=== PATIENT | female | born 1940 | race Caucasian/White ===

== ENCOUNTER 2017-05-13 14:15 | Inpatient (IN) | payer MEDICARE, OTHER ==
[2017-05-13] MEDS ORDERED: Sodium Chloride 0.9% 20 ML SDV FLUSH SCH (14:30)
--- NOTE | 2017-05-13 15:13 | EDM.PDOC ---
Addendum entered and electronically signed by Kyrie Matthew PA-C 05/14/17 15 :38: Plan: Admit for treatment of pneumonia in a chemotherapy patient. Original Note: ED HPI GENERAL MEDICAL PROBLEM - General Chief Complaint: Respiratory Problem Stated Complaint: FEVERS, COUGH SYMPTOMS Time Seen by Provider: 05/13/17 15:01 Source of Information: Reports: Patient History Limitations: Reports: No Limitations - History of Present Illness INITIAL COMMENTS - FREE TEXT/NARRATIVE: Patient presents with cough for 3 days, sore throat for 2 days and mild fever since yesterday. She is getting chemotherapy to treat cervical cancer. Last WBC was 1.4 so she is concerned about her ability to fight off an infection. So far she hasn't had any infections since she started chemo 2.5 months ago. 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 Denies: Malaise, Weakness, Diaphoresis HEENT: Reports: Throat Pain. Denies: Vision Change Respiratory: Reports: Cough, Sputum (clear). Denies: Shortness of Breath Cardiovascular: Denies: Chest Pain, Syncope GI/Abdominal: Denies: Abdominal Pain, Vomiting : Denies: Dysuria, Flank Pain, Frequency, Hematuria, Urgency Musculoskeletal: Reports: No Symptoms Skin: Denies: Cyanosis, Jaundice, Mottled, Pallor, Diaphoresis Neurological: Denies: Confusion, Dizziness, Headache Psychiatric: Denies: Agitation, Anxiety, Confusion ED EXAM, GENERAL - Physical Exam Exam: See Below Exam Limited By: No Limitations General Appearance: Alert, WD/WN, No Apparent Distress Eye Exam: Bilateral Eye: EOMI, Normal Inspection, PERRL Ears: Normal External Exam, Hearing Grossly Normal Nose: Normal Inspection, No Blood Throat/Mouth: Normal Inspection, Normal Lips, Normal Oropharynx, Normal Voice, No Airway Compromise Head: Atraumatic, Normocephalic Neck: Normal Inspection, Supple, Non-Tender, Full Range of Motion Respiratory/Chest: No Respiratory Distress, Other (Auscultating during the first two deep breaths, I heard wheezing and crackles in right lung base. The deep breaths triggered some coughing, after which all the lung driscoll were clear with good air movement.) Cardiovascular: Regular Rate, Rhythm, No Murmur GI/Abdominal: Soft, Non-Tender, No Organomegaly, No Distention Back Exam: Normal Inspection. No: CVA Tenderness (L), CVA Tenderness (R) Extremities: Normal Inspection, No Pedal Edema Neurological: Alert, Oriented, Normal Cognition, No Motor/Sensory Deficits Psychiatric: Normal Affect, Normal Mood Skin Exam: Warm, Dry, Intact, Normal Color, No Rash Course - Vital Signs Last Recorded V/S: Last Vital Signs Temp 99.4 F 05/13/17 14:37 Pulse 87 05/13/17 14:37 Resp 18 05/13/17 14:37 BP 184/105 H 05/13/17 14:37 Pulse Ox 97 05/13/17 14:37 - Orders/Labs/Meds Orders: Active Orders 24 hr Category Date Time Status Chest 2V [CR] Stat Exams 05/13/17 14:50 Ordered CULTURE BLOOD [BC] Stat Lab 05/13/17 14:30 Received CULTURE BLOOD [BC] Stat Lab 05/13/17 15:00 Received Heparin Sodium [Heparin Lock Flush 100 Units/ML] Med 05/13/17 15:15 Active 500 unit FLUSH ASDIRECTED Sodium Chloride 0.9% [Normal Saline] Med 05/13/17 14:30 Active 20 ml FLUSH ASDIRECTED Medication Orders Heparin Sodium (Porcine) (Heparin Lock Flush 100 Units/Ml) 500 unit FLUSH ASDIRECTED [facility] Sodium Chloride (Normal Saline) 20 ml FLUSH ASDIRECTED [facility] Labs: Laboratory Tests 05/13/17 05/13/17 Range/Units 14:30 14:30 WBC 4.6 L (5.0-10.0) 10^3/uL RBC 3.76 L (3.80-5.50) 10^6/uL Hgb 10.7 L (12.0-16.0) g/dL Hct 32.6 L (37.0-47.0) % MCV 86.7 (82.0-92.0) fL MCH 28.5 (27.0-31.0) pg MCHC 32.9 (32.0-36.0) g/dL RDW 16.5 H (11.5-14.5) % Plt Count 300 (150-300) 10^3/uL MPV 6.5 L (7.4-10.4) fL Neut % (Auto) 58.2 (50.0-70.0) % Lymph % (Auto) 23.7 (20.0-40.0) % [place] % (Auto) 16.1 H (2.0-8.0) % Eos % (Auto) 0.4 L (1.0-3.0) % Baso % (Auto) 1.6 H (0.0-1.0) % Neut # (Auto) 2.7 (2.5-7.0) 10^3/uL Lymph # (Auto) 1.1 (1.0-4.0) 10^3/uL [place] # (Auto) 0.7 (0.1-0.8) 10^3/uL Eos # (Auto) 0.0 L (0.1-0.3) 10^3/uL Baso # (Auto) 0.1 (0.0-0.1) 10^3/uL Sodium 135 L (136-145) mmol/L Potassium 4.1 (3.3-5.3) mmol/L Chloride 100 (98-115) mmol/L Carbon Dioxide 27.0 (21.0-32.0) mmol/L BUN 19 (6-25) mg/dL Creatinine 0.97 (0.51-1.17) mg/dL Est Cr Clr Drug Dosing 39.02 mL/min Estimated GFR (MDRD) 56 mL/min Glucose 95 (70-110) mg/dL Calcium 9.1 (8.7-10.3) mg/dL Meds: Medications Generic Name Dose Route Start Last Admin Trade Name Freq PRN Reason Stop Dose Admin Heparin Sodium (Porcine) 500 unit 05/13/17 15:15 Heparin Lock Flush 100 Units/Ml FLUSH ASDIRECTED [facility] Sodium Chloride 20 ml 05/13/17 14:30 Normal Saline FLUSH ASDIRECTED [facility] - Re-Assessments/Exams Free Text/Narrative Re-Assessment/Exam: 05/13/17 15:34 WBC is okay at 4.6 with adequate neutrophils at 2.7. To be safe, will give Rocephin IM. BP is high and will treat with Metoprolol for that. CXR doesn't show any definite infiltrates but bilat lower lung driscoll look a bit "hazy" to me. Will look at report when it comes. Discussed these findings and recommend early followup with Dr. Mcpherson in the next day or two. 05/13/17 16:03 I reviewed UpToDate on neutropenic fever, although this patient doesn't currently meet that criteria of 100.4 temp or absolute neutropenia, to optimize treatment as much as possible. Low-risk patients can be safely discharged on Cipro/Levaquin and Augmentin; high-risk patients need to be hospitalized for IV treatment. This patient does not meet criteria for neutropenic fever technically but I feel she is at risk for it so will proceed with the recommended treatment for low-risk neutropenic fever patients as follows: Cipro 750 mg bid and Augmentin 500 tid. I urged her to follow up with her PCP tomorrow for recheck. 05/13/17 16:22 Patient is feeling a little anxious which is likely affecting her BP also; she is okay with Ativan. 05/13/17 17:09 Xray report showed a "minimal new interstitial infiltrate in right upper lung". With that information I called her oncologist and Tomas Ahuja to discuss the details. We decided that she will have to postpone her chemo for tomorrow and keep her in the hospital here. Dr. Hernandez (oncologist) wants her to have Levaquin 750 mg q48 based on her CrCl; she doesn't want any other antibiotic coverage such as Cefipime since ANC is normal. Since we have already given Cipro and Rocephin, Tomas will determine when the Levaquin can be safely given as inpatient. Discussed findings and treatment plan with patient and her daughter. Departure - Departure Time of Disposition: 17:30 Disposition: Admitted As Inpatient 67 Condition: Good Clinical Impression: Cough productive of clear sputum, Patient on antineoplastic chemotherapy regimen Fever Qualifiers: Encounter type: initial encounter Pneumonia Qualifiers: Pneumonia type: due to unspecified organism Laterality: right Lung location: upper lobe of lung Qualified Code(s): J18.1 - Lobar pneumonia, unspecified organism - Discharge Information Forms: ED Department Discharge, ED Department Discharge - My Orders Last 24 Hours: My Active Orders 05/13/17 14:30 CULTURE BLOOD [BC] Stat Sodium Chloride 0.9% [Normal Saline] 20 ml FLUSH ASDIRECTED 05/13/17 14:50 Chest 2V [CR] Stat 05/13/17 15:00 CULTURE BLOOD [BC] Stat 05/13/17 15:15 Heparin Sodium [Heparin Lock Flush 100 Units/ML] 500 unit FLUSH ASDIRECTED - Assessment/Plan Last 24 Hours: My Active Orders 05/13/17 14:30 CULTURE BLOOD [BC] Stat Sodium Chloride 0.9% [Normal Saline] 20 ml FLUSH ASDIRECTED 05/13/17 14:50 Chest 2V [CR] Stat 05/13/17 15:00 CULTURE BLOOD [BC] Stat 05/13/17 15:15 Heparin Sodium [Heparin Lock Flush 100 Units/ML] 500 unit FLUSH ASDIRECTED
[2017-05-13] MEDS ORDERED: Heparin Sodium 100 Units/ML 5 ML MDV FLUSH SCH (15:15)
[2017-05-13] MEDS ORDERED: Metoprolol Tartrate 50 MG Tab PO SCH (15:30)
[2017-05-13] MEDS ORDERED: cefTRIAXone 1 GM Vial IM ONE (15:32)
[2017-05-13] MEDS ORDERED: Lidocaine 1% 20 ML MDV ONE (15:39)
[2017-05-13] MEDS ORDERED: cefTRIAXone 1 GM Vial ONE (15:45)
[2017-05-13] MEDS ORDERED: Ciprofloxacin 500 MG Tab PO ONE (15:54)
[2017-05-13] MEDS ORDERED: LORazepam 0.5 MG Tab PO ONE (16:21)
[2017-05-13] MEDS ORDERED: Ciprofloxacin 250 MG Tab ONE (16:28)
[2017-05-13] MEDS ORDERED: Acetaminophen 500 MG Tab PO PRN (18:27)
[2017-05-13] MEDS ORDERED: Dexamethasone 4 MG Tab PO SCH (18:27)
--- NOTE | 2017-05-13 20:25 | PCM.HP ---
H&P History of Present Illness - General Date of Service: 05/13/17 Admit Problem/Dx: Admission Diagnosis/Problem Admission Diagnosis/Problem Pneumonia Source of Information: Family, Old Records, Provider, RN History Limitations: Reports: No Limitations - History of Present Illness Initial Comments - Free Text/Narative: This 77-year-old female who suffers from metastatic cervical cancer currently on chemotherapy in due for chemotherapy on May 14 was admitted to the emergency department after developing a fever of 100.7 at home with a worsening cough, scratchy with mild mucous production. He took Tylenol at home however fever returned. Denies any nausea or vomiting however is quite weak. On May 11 her ANC was 1300 and has increased to 2700 today. Chest x-ray shows infiltrate right upper lobe. Renetta has metastatic cervical cancer with METS in the supraclavicular area, bilateral axillary area, lung nodules, mediastinal, subcarinal lymph nodes, retroperitoneal, retrocrural lymph nodes as noted on recent CT. Current chemotherapy with cisplatin, 5FU and bevacizumab. - Related Data Allergies/Adverse Reactions: Allergies Allergy/AdvReac Type Severity Reaction Status Date / Time No Known Allergies Allergy Verified 05/13/17 14:41 Home Medications: Home Meds Acetaminophen 500 mg PO Q4H PRN 03/17/17 [History] Dexamethasone 8 mg PO ASDIRECTED 03/17/17 [History] Ondansetron HCl [Zofran] 8 mg PO TID PRN 03/17/17 [History] Prochlorperazine Maleate [Compazine] 10 mg PO QID PRN 03/17/17 [History] guaiFENesin/Codeine Phosphate [Codeine-Guaifen 10-100 mg/5 ml] 10 ml PO Q6H PRN 03/17/17 [History] Past Medical History HEENT History: Reports: Cataract Cardiovascular History: Reports: Hypertension Gastrointestinal History: Reports: Hiatal Hernia 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: Musculoskeletal History: Reports: Osteoarthritis Neurological History: Reports: Other (See Below) Other Neuro History: beginning dementia Psychiatric History: Reports: Anxiety, Dementia, Panic Attack Immunologic History: Reports: Immunosuppression Oncologic (Cancer) History: Reports: Bone, Breast, Cervix - Infectious Disease History Infectious Disease History: Reports: Chicken Pox, Human Papilloma Virus (HPV), Influenza, Measles, Mumps, Shingles - Past Surgical History HEENT Surgical History: Reports: Cataract Surgery Cardiovascular Surgical History: Reports: None Oncologic Surgical History: Reports: None Social & Family History - Family History Cardiac: Reports: GA Respiratory: Reports: None GI: Reports: Hiatal Hernia : Reports: None OBGYN: Reports: Musculoskeletal: Reports: None Neurological: Reports: Alzheimers Disease Psychiatric: Reports: None Endocrine/Metabolic: Reports: None Hematologic: Reports: None Oncologic: Reports: Lung, Other (See Below) Other Oncologic Family History: mouth - Tobacco Use Smoking Status *Q: Never Smoker Second Hand Smoke Exposure: Yes - Caffeine Use Caffeine Use: Reports: Coffee - Alcohol Use Date of Last Drink: 05/08/17 - Recreational Drug Use Recreational Drug Use: No H&P Review of Systems - Review of Systems: Review Of Systems: See Below General: Reports: Fever, Chills, Malaise, Weakness, Fatigue, Diaphoresis. Denies: Night Sweats, Decreased Appetite, Weight Loss HEENT: Reports: Sore Throat Pulmonary: Reports: Cough, Sputum. Denies: Shortness of Breath, Wheezing, Pleuritic Chest Pain, Hemoptysis Cardiovascular: Reports: No Symptoms Gastrointestinal: Reports: No Symptoms Genitourinary: Reports: Other (History vaginal discharge however resolved--due to gynecological examination friability) Musculoskeletal: Reports: No Symptoms Skin: Reports: No Symptoms Psychiatric: Reports: No Symptoms Neurological: Reports: No Symptoms Hematologic/Lymphatic: Denies: Swollen Glands Immunologic: Reports: Other (Oncology patient) Exam - Exam Exam: See Below - Vital Signs Vital Signs: Last Vital Signs Temp 98.6 F 05/13/17 17:44 Pulse 70 05/13/17 17:44 Resp 20 05/13/17 17:44 BP 183/117 H 05/13/17 17:44 Pulse Ox 97 05/13/17 17:44 Weight: 118 lb 6.4 oz - Exam Quality Assessment: No: Supplemental Oxygen General: Alert, Oriented, 4 HEENT: Hearing Intact, Rhinitis. No: Mucosa Moist & [place] Neck: Supple, Trachea Midline. No: Lymphadenopathy Lungs: Wheezing (Right upper base). No: Crackles Cardiovascular: Regular Rate, Regular Rhythm, Normal S1, Normal S2 Abdomen: Normal Bowel Sounds, Soft. No: Organomegaly, Peritoneal Signs, Distention, Tenderness (Female) Exam: Deferred Back Exam: No: CVA Tenderness (L), CVA Tenderness (R) Peripheral Pulses: 2+: Radial (R), Femoral (L) Skin: Warm, Dry, Intact Neurological: Normal Gait Neuro Extensive - Mental Status: Alert, Oriented x3, Normal Mood/Affect, Memory Intact Neuro Extensive - Motor, Sensory, Reflexes: CN II-XII Intact, Normal Gait, Normal Reflexes Psychiatric: Alert, Labile Mood. No: Agitated - Patient Data Result Diagrams: 05/14/17 07:10 05/14/17 07:10 *Q Meaningful Use (ADM) - VTE *Q VTE Criteria *Q: - Stroke *Q Stroke Criteria *Q: - AMI *Q AMI Criteria *Q: Problem List Initiated/Reviewed/Updated: Yes Orders Last 24hrs: Active Orders 24 hr Category Date Time Status Patient Status [ADT] Routine ADT 05/13/17 17:53 Ordered Central Line Assessment [RC] [id number] Care 05/13/17 18:35 Active Up With Assistance [RC] .PRN Care 05/13/17 18:20 Active Regular Diet [DIET] Diet 05/13/17 Dinner Active Acetaminophen [Tylenol Extra Strength] Med 05/13/17 18:27 Active 500 mg PO Q4H PRN Codeine/guaiFENesin [Robitussin AC] Med 05/13/17 18:36 Active 10 ml PO Q6H PRN Code Status [Resuscitation Status] Routine Resus Stat 05/13/17 18:19 Ordered Medication Orders Acetaminophen (Tylenol Extra Strength) 500 mg PO Q4H PRN PRN Reason: Pain Guaifenesin/Codeine Phosphate (Robitussin Ac) 10 ml PO Q6H PRN PRN Reason: Cough Assessment/Plan Comment:: HISTORY OF PRESENT ILLNESS This 77-year-old female who suffers from metastatic cervical cancer currently on chemotherapy is due for chemotherapy on May 14 was admitted to the emergency department after developing a fever of 100.7 at [place] with a worsening cough, scratchy with mild mucous production. She took Tylenol however fever returned. Denies any nausea or vomiting however is quite weak. On May 11 her ANC was 1300 and has increased to 2700 today. Chest x-ray shows infiltrate right upper lobe. Renetta has metastatic cervical cancer with METS in the supraclavicular area, bilateral axillary area, lung nodules, mediastinal, subcarinal lymph nodes, retroperitoneal, retrocrural lymph nodes as noted on recent CT. Current chemotherapy with cisplatin, 5FU and bevacizumab. Oncology history, patient was seen at [facility] for second opinion by gynecology in January 2017, and was informed that it appeared that she has extensive cancer in the cervix extending into the paracervical regions. As per gynecology, this is cervical cancer causing metastasis to other sites. As per 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 SOCIAL HISTORY She used to live alone in [place]. Now, in long-term care center in [place] since March 2017. CODE STATUS full code IMPRESSION/PLAN Pneumonia, community-acquired, minimal new interstitial infiltrate in right upper lung, patient was given Rocephin along with ciprofloxacin in ED however will change to Levaquin at next interval dosing q 48 hours due to decreased creatinine clearance. Incentive spirometer, monitor for need for oxygenation. Blood cultures, sputum culture, urine culture, lactic acid level, qSOFA 0/3. Start normal saline at 62 mL per hour Hypertension, metoprolol given the ED, this has improved, will place on Norvasc 5 mg by mouth daily Metastatic cervical cancer with METS in the supraclavicular area, bilateral axillary area, lung nodules, mediastinal and subcarinal lymph nodes, retroperitoneal, retrocrural lymph nodes. Was to start chemotherapy tomorrow. This will be rescheduled. Chemotherapy-induced alopecia Immunocompromised host, precautions Overall plan, IV antibiotics--changed to Levaquin, respiratory precautions, monitor her ANC carefully, monitor for signs of sepsis, Reschedule chemotherapy. Dr. Dimple Hernandez hematology/oncology as been consulted and agrees with treatment plan. She does agree to chemotherapy being rescheduled. She will need 3 days minimal IV antibiotics for blood culture surveillance.
[2017-05-13] MEDS ORDERED: Ondansetron 4 MG/2 ML SDV IVPUSH PRN (20:52)
[2017-05-13] MEDS: amLODIPine 5 MG Tab PO SCH (21:18)
[2017-05-13] MEDS: Sodium Chloride 0.9% 1,000 ML IV SCH (21:22)
[2017-05-14] MEDS: Codeine/guaiFENesin 100mg-10 MG/5 ML Syrup 10 ML Cup PO PRN ×2 (01:37→22:03)
[2017-05-14] MEDS: amLODIPine 5 MG Tab PO SCH (09:10)
--- NOTE | 2017-05-14 09:16 | PCM.PN ---
- General Info Date of Service: 05/14/17 Functional Status: Reports: pain controlled - Review of Systems General: Reports: Other (She states she feels better, no sore throat, more energy today). Denies: Fever, Weakness, Fatigue, Chills, Night Sweats HEENT: Reports: no symptoms. Denies: sore throat (No longer has sore throat) Pulmonary: Reports: cough, sputum. Denies: shortness of breath, hemoptysis, wheezing Cardiovascular: Reports: Edema (Edema left lower extremity, chronic) Gastrointestinal: Reports: No symptoms Genitourinary: Reports: no symptoms Musculoskeletal: Reports: no symptoms Skin: Reports: no symptoms Neurological: Reports: No Symptoms Psychiatric: Reports: no symptoms, other (Very good affect) - Patient Data Vitals - most recent: Last Vital Signs Temp 98.9 F 05/14/17 05:46 Pulse 87 05/14/17 05:46 Resp 24 H 05/14/17 05:46 BP 161/80 H 05/14/17 09:10 Pulse Ox 94 L 05/14/17 05:46 Weight - most recent: 118 lb 6.4 oz I&O - last 24 hours: Intake & Output 05/13/17 05/14/17 05/14/17 22:59 06:59 14:59 Intake Total 440 496 Output Total 500 700 Balance -60 -204 Lab Results last 24 hrs: Laboratory Results - last 24 hr 05/14/17 05/14/17 Range/Units 07:10 07:10 WBC 4.5 L (5.0-10.0) 10^3/uL RBC 3.53 L (3.80-5.50) 10^6/uL Hgb 10.2 L (12.0-16.0) g/dL Hct 30.7 L (37.0-47.0) % MCV 87.0 (82.0-92.0) fL MCH 28.7 (27.0-31.0) pg MCHC 33.0 (32.0-36.0) g/dL RDW 16.4 H (11.5-14.5) % Plt Count 235 (150-300) 10^3/uL MPV 7.4 (7.4-10.4) fL Neut % (Auto) 56.0 (50.0-70.0) % Lymph % (Auto) 23.8 (20.0-40.0) % [place] % (Auto) 17.6 H (2.0-8.0) % Eos % (Auto) 1.2 (1.0-3.0) % Baso % (Auto) 1.4 H (0.0-1.0) % Neut # (Auto) 2.4 L (2.5-7.0) 10^3/uL Lymph # (Auto) 1.1 (1.0-4.0) 10^3/uL [place] # (Auto) 0.8 (0.1-0.8) 10^3/uL Eos # (Auto) 0.1 (0.1-0.3) 10^3/uL Baso # (Auto) 0.1 (0.0-0.1) 10^3/uL Sodium 138 (136-145) mmol/L Potassium 4.4 (3.3-5.3) mmol/L Chloride 104 (98-115) mmol/L Carbon Dioxide 27.7 (21.0-32.0) mmol/L BUN 16 (6-25) mg/dL Creatinine 0.95 (0.51-1.17) mg/dL Est Cr Clr Drug Dosing 39.85 mL/min Estimated GFR (MDRD) 57 mL/min Glucose 93 (70-110) mg/dL Calcium 8.9 (8.7-10.3) mg/dL Med Orders - Current: Current Medications Acetaminophen (Tylenol Extra Strength) 500 mg PO Q4H PRN PRN Reason: Pain Amlodipine Besylate (Norvasc) 5 mg PO DAILY [facility] Last Admin: 05/14/17 09:10 Dose: 5 mg Guaifenesin/Codeine Phosphate (Robitussin Ac) 10 ml PO Q6H PRN PRN Reason: Cough Last Admin: 05/14/17 01:37 Dose: 10 ml Sodium Chloride (Normal Saline) 1,000 mls @ 62 mls/hr IV ASDIRECTED [facility] Last Admin: 05/13/17 21:22 Dose: 62 mls/hr Levofloxacin/Dextrose (Levaquin In D5w 500 Mg/100 Ml) 100 mls @ 100 mls/hr IV Q24H [facility] Levofloxacin/Dextrose (Levaquin In D5w 250 Mg/50 Ml) 50 mls @ 50 mls/hr IV Q24H [facility] Ondansetron HCl (Zofran) 4 mg IVPUSH Q4H PRN PRN Reason: Nausea/Vomiting Discontinued Medications Ceftriaxone Sodium (Rocephin) 1 gm IM ONETIME ONE Stop: 05/13/17 15:33 Last Admin: 05/13/17 15:58 Dose: 1 gm Ceftriaxone Sodium (Rocephin) Confirm Administered Dose 1 gm .ROUTE .[facility] ONE Stop: 05/13/17 15:46 Last Admin: 05/13/17 16:00 Dose: Not Given Ciprofloxacin (Ciprofloxacin Hcl) 750 mg PO ONETIME ONE Stop: 05/13/17 15:55 Last Admin: 05/13/17 16:18 Dose: 750 mg Ciprofloxacin (Ciprofloxacin Hcl) Confirm Administered Dose 250 mg .ROUTE .[facility] ONE Stop: 05/13/17 16:29 Last Admin: 05/13/17 16:39 Dose: Not Given Dexamethasone (Dexamethasone) 8 mg PO ASDIRECTED [facility] Heparin Sodium (Porcine) (Heparin Lock Flush 100 Units/Ml) 500 unit FLUSH ASDIRECTED [facility] Lidocaine HCl (Xylocaine 1%) Confirm Administered Dose 20 ml .ROUTE .[facility] ONE Stop: 05/13/17 15:40 Last Admin: 05/13/17 16:00 Dose: Not Given Lorazepam (Ativan) 0.5 mg PO ONETIME ONE Stop: 05/13/17 16:22 Last Admin: 05/13/17 16:31 Dose: 0.5 mg Metoprolol Tartrate (Lopressor) 50 mg PO BID [facility] Last Admin: 05/13/17 15:25 Dose: 50 mg Sodium Chloride (Normal Saline) 20 ml FLUSH ASDIRECTED [facility] Last Admin: 05/13/17 15:59 Dose: 20 ml - Exam Quality Assessment: No: supplemental oxygen General: alert, oriented Neck: supple Lungs: Wheezing (Slight wheeze left middle posterior and expiratory). No: Crackles, Rales, Rhonchi Cardiovascular: Regular Rate, Regular Rhythm, No Murmurs Abdomen: bowel sounds present, soft, no tenderness, no distension Back Exam: No: CVA Tenderness (L), CVA Tenderness (R) Extremities: edema (Edema left lower extremity nonpitting) Peripheral Pulses: 2+: Radial (L), Radial (R) Skin: warm, dry, intact Neurological: no new focal deficit Psy/Mental Status: alert, normal affect, normal mood. No: labile mood, anxious - Problem List Review Problem List Initiated/Reviewed/Updated: Yes - My Orders Last 24 Hours: My Active Orders 05/13/17 20:50 CULTURE URINE [RM] Routine 05/13/17 20:52 Incentive Breathing [RT Incentive Spirometry] [RC] 0900,1500,2200 Ondansetron [Zofran] 4 mg IVPUSH Q4H PRN 05/13/17 21:00 Sodium Chloride 0.9% [Normal Saline] 1,000 ml IV ASDIRECTED amLODIPine [Norvasc] 5 mg PO DAILY 05/13/17 22:18 CULTURE THROAT [RM] Routine 05/14/17 06:27 CULTURE SPUTUM + SMEAR [RM] Routine 05/15/17 15:00 Levofloxacin/Dextrose 5%-Water [Levaquin in D5W 250 MG/50 ML] 50 ml IV Q24H 05/15/17 16:00 Levofloxacin/Dextrose 5%-Water [Levaquin in D5W 500 MG/100 ML] 100 ml IV Q24H - Plan Plan:: HISTORY OF PRESENT ILLNESS This 77-year-old female who suffers from metastatic cervical cancer currently on chemotherapy is due for chemotherapy on May 14 was admitted to the emergency department after developing a fever of 100.7 at NH with a worsening cough, scratchy with mild mucous production. She took Tylenol however fever returned. Denies any nausea or vomiting however is quite weak. On May 11 her ANC was 1300 and has increased to 2700 today. Chest x-ray shows infiltrate right upper lobe. Renetta has metastatic cervical cancer with METS in the supraclavicular area, bilateral axillary area, lung nodules, mediastinal, subcarinal lymph nodes, retroperitoneal, retrocrural lymph nodes as noted on recent CT. Current chemotherapy with cisplatin, 5FU and bevacizumab. Oncology history, patient was seen at [facility] for second opinion by gynecology in January 2017, and was informed that it appeared that she has extensive cancer in the cervix extending into the paracervical regions. As per gynecology, this is cervical cancer causing metastasis to other sites. As per 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 SOCIAL HISTORY She used to live alone in [place]. Now, in long-term care [facility] in [place] since March 2017. CODE STATUS full code Update from last night, no longer febrile, blood pressure improved with Norvasc , has more energy, no more sore throat, less cough, less weakness, ANC 2400 IMPRESSION/PLAN Pneumonia, community-acquired, minimal new interstitial infiltrate in right upper lung, patient was given Rocephin along with ciprofloxacin in ED however will change to Levaquin at next interval dosing q 48 hours (tomorrow 1500) due to decreased creatinine clearance. Incentive spirometer, monitor for need for oxygenation. Blood cultures, sputum culture, urine culture, lactic acid level, qSOFA 0/3. Continue with isotonic saline at 62 mL per hour. Hypertension, metoprolol given the ED, this has improved, on admission placed her on Norvasc 5 mg by mouth daily--we'll monitor for worsening edema Metastatic cervical cancer with METS in the supraclavicular area, bilateral axillary area, lung nodules, mediastinal and subcarinal lymph nodes, retroperitoneal, retrocrural lymph nodes. Was to start chemotherapy tomorrow. This will be rescheduled. Chemotherapy-induced alopecia Immunocompromised host, precautions, ANC adequate Overall plan, IV antibiotics--changed to Levaquin, respiratory precautions, monitor her ANC carefully, monitor for signs of sepsis, Reschedule chemotherapy. Dr. Dimple Hernandez hematology/oncology as been consulted and agrees with treatment plan. She does agree to chemotherapy being rescheduled. She will need 3 days minimal IV antibiotics for blood culture surveillance.
[2017-05-14] MEDS: Sodium Chloride 0.9% 1,000 ML IV SCH (13:24)
[2017-05-15] MEDS: Sodium Chloride 0.9% 1,000 ML IV SCH (05:22)
[2017-05-15] MEDS: Codeine/guaiFENesin 100mg-10 MG/5 ML Syrup 10 ML Cup PO PRN (06:47)
[2017-05-15] MEDS: amLODIPine 5 MG Tab PO SCH (08:17)
[2017-05-15] MEDS ORDERED: Sodium Chloride 0.9% 5 ML Syringe FLUSH PRN (08:45)
[2017-05-15] MEDS ORDERED: amLODIPine 5 MG Tab PO ONE (09:00)
--- NOTE | 2017-05-15 09:20 | PCM.PN ---
- General Info Date of Service: 05/15/17 Functional Status: Reports: pain controlled, tolerating diet, ambulating, new symptoms (Stage 2 elevated blood pressure) - Review of Systems General: Denies: Fever, Weakness, Fatigue, Malaise, Chills, Night Sweats HEENT: Reports: no symptoms Pulmonary: Reports: cough, sputum Cardiovascular: Reports: Edema (Left lower extremity edema was placed on amlodipine yesterday) Gastrointestinal: Reports: No symptoms Genitourinary: Reports: no symptoms Musculoskeletal: Reports: no symptoms Psychiatric: Reports: no symptoms. Denies: confusion - Patient Data Vitals - most recent: Last Vital Signs Temp 98.8 F 05/15/17 07:00 Pulse 73 05/15/17 07:00 Resp 20 05/15/17 07:00 BP 195/114 H 05/15/17 09:09 Pulse Ox 99 05/15/17 07:00 Weight - most recent: 118 lb 6.4 oz I&O - last 24 hours: Intake & Output 05/14/17 05/15/17 05/15/17 22:59 06:59 14:59 Intake Total 859 509 Output Total 700 1100 Balance 159 -591 Med Orders - Current: Current Medications Acetaminophen (Tylenol Extra Strength) 500 mg PO Q4H PRN PRN Reason: Pain Amlodipine Besylate (Norvasc) 10 mg PO DAILY [facility] Guaifenesin/Codeine Phosphate (Robitussin Ac) 10 ml PO Q6H PRN PRN Reason: Cough Last Admin: 05/15/17 06:47 Dose: 10 ml Sodium Chloride (Normal Saline) 1,000 mls @ 62 mls/hr IV ASDIRECTED [facility] Last Admin: 05/15/17 05:22 Dose: 62 mls/hr Levofloxacin/Dextrose (Levaquin In D5w 500 Mg/100 Ml) 100 mls @ 100 mls/hr IV Q48H [facility] Levofloxacin/Dextrose (Levaquin In D5w 250 Mg/50 Ml) 50 mls @ 50 mls/hr IV Q48H [facility] Ondansetron HCl (Zofran) 4 mg IVPUSH Q4H PRN PRN Reason: Nausea/Vomiting Sodium Chloride (Syrex Flush) 5 ml FLUSH Q8HR PRN PRN Reason: Keep Vein Open Discontinued Medications Amlodipine Besylate (Norvasc) 5 mg PO DAILY [facility] Last Admin: 05/15/17 08:17 Dose: 5 mg Amlodipine Besylate (Norvasc) 5 mg PO ONETIME ONE Stop: 05/15/17 09:01 Last Admin: 05/15/17 09:09 Dose: 5 mg Ceftriaxone Sodium (Rocephin) 1 gm IM ONETIME ONE Stop: 05/13/17 15:33 Last Admin: 05/13/17 15:58 Dose: 1 gm Ceftriaxone Sodium (Rocephin) Confirm Administered Dose 1 gm .ROUTE .[facility] ONE Stop: 05/13/17 15:46 Last Admin: 05/13/17 16:00 Dose: Not Given Ciprofloxacin (Ciprofloxacin Hcl) 750 mg PO ONETIME ONE Stop: 05/13/17 15:55 Last Admin: 05/13/17 16:18 Dose: 750 mg Ciprofloxacin (Ciprofloxacin Hcl) Confirm Administered Dose 250 mg .ROUTE .[facility]- [facility] ONE Stop: 05/13/17 16:29 Last Admin: 05/13/17 16:39 Dose: Not Given Dexamethasone (Dexamethasone) 8 mg PO ASDIRECTED [facility] Heparin Sodium (Porcine) (Heparin Lock Flush 100 Units/Ml) 500 unit FLUSH ASDIRECTED [facility] Lidocaine HCl (Xylocaine 1%) Confirm Administered Dose 20 ml .ROUTE .[facility] ONE Stop: 05/13/17 15:40 Last Admin: 05/13/17 16:00 Dose: Not Given Lorazepam (Ativan) 0.5 mg PO ONETIME ONE Stop: 05/13/17 16:22 Last Admin: 05/13/17 16:31 Dose: 0.5 mg Metoprolol Tartrate (Lopressor) 50 mg PO BID [facility] Last Admin: 05/13/17 15:25 Dose: 50 mg Sodium Chloride (Normal Saline) 20 ml FLUSH ASDIRECTED [facility] Last Admin: 05/13/17 15:59 Dose: 20 ml - Exam Quality Assessment: No: supplemental oxygen General: alert, oriented Neck: supple Lungs: Rhonchi, Wheezing (Slight wheeze right mid lobe and axillary) Cardiovascular: Regular Rate, Regular Rhythm, No Murmurs Back Exam: No: CVA Tenderness (L), CVA Tenderness (R) Extremities: edema (Edema left lower extremity) Skin: warm, dry, intact Neurological: no new focal deficit Psy/Mental Status: alert, normal affect, normal mood - Problem List Review Problem List Initiated/Reviewed/Updated: Yes - My Orders Last 24 Hours: My Active Orders 05/15/17 08:45 Sodium Chloride 0.9% [Syrex Flush] 5 ml FLUSH Q8HR PRN Saline Lock Insert [OM.PC] Routine 05/15/17 15:00 Levofloxacin/Dextrose 5%-Water [Levaquin in D5W 250 MG/50 ML] 50 ml IV Q48H 05/15/17 16:00 Levofloxacin/Dextrose 5%-Water [Levaquin in D5W 500 MG/100 ML] 100 ml IV Q48H 05/16/17 09:00 amLODIPine [Norvasc] 10 mg PO DAILY - Plan Plan:: HISTORY OF PRESENT ILLNESS This 77-year-old female who suffers from metastatic cervical cancer currently on chemotherapy is due for chemotherapy on May 14 was admitted to the emergency department after developing a fever of 100.7 at NH with a worsening cough, scratchy with mild mucous production. She took Tylenol however fever returned. Denies any nausea or vomiting however is quite weak. On May 11 her ANC was 1300 and has increased to 2700 today. Chest x-ray shows infiltrate right upper lobe. Renetta has metastatic cervical cancer with METS in the supraclavicular area, bilateral axillary area, lung nodules, mediastinal, subcarinal lymph nodes, retroperitoneal, retrocrural lymph nodes as noted on recent CT. Current chemotherapy with cisplatin, 5FU and bevacizumab. Oncology history, patient was seen at [facility] for second opinion by gynecology in January 2017, and was informed that it appeared that she has extensive cancer in the cervix extending into the paracervical regions. As per gynecology, this is cervical cancer causing metastasis to other sites. 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 SOCIAL HISTORY She used to live alone in [place], [place]. Was placed in long-term care center in [place] since March 2017. CODE STATUS full code Update from last night, ongoing elevated blood pressure--asymptomatic, was placed on amlodipine 5 mg yesterday. Ongoing cough however not as bad as day of admission. ANC 2400, but culture surveillance ongoing no growth IMPRESSION/PLAN Pneumonia, community-acquired, minimal new interstitial infiltrate in right upper lung, patient was given Rocephin along with ciprofloxacin in ED however due to decreased renal clearance today she will receive Levaquin, Incentive spirometer, monitor for need for oxygenation. Blood cultures, sputum culture, urine culture, lactic acid level, qSOFA 0/3. Saline lock IV today. Hypertension, Stage II, increase Norvasc to 10 mg by mouth daily--monitor for worsening edema. Taking adequate orals discontinue IV fluids Metastatic cervical cancer with METS in the supraclavicular area, bilateral axillary area, lung nodules, mediastinal and subcarinal lymph nodes, retroperitoneal, retrocrural lymph nodes. Was to start chemotherapy tomorrow. This will be rescheduled. Chemotherapy-induced alopecia Immunocompromised host, precautions, ANC adequate Overall plan, Levaquin today, discontinue IV fluids, increase Norvasc, espiratory precautions, monitor her ANC carefully, monitor for signs of sepsis, Reschedule chemotherapy. Dr. Dimple Hernandez hematology/oncology as been consulted and agrees with treatment plan. She does agree to chemotherapy being rescheduled. She will need 3 days minimal IV antibiotics for blood culture surveillance. Possible discharge within the next 24-48 hours
[2017-05-15] MEDS: Sodium Chloride 0.9% 20 ML SDV FLUSH PRN (14:45)
[2017-05-15] MEDS ORDERED: Levofloxacin/Dextrose 5%-Water 50 ML IV SCH (15:00)
[2017-05-15] MEDS ORDERED: Levofloxacin/Dextrose 5%-Water 100 ML IV SCH (16:00)
[2017-05-16] MEDS: LORazepam 0.5 MG Tab PO PRN ×2 (02:28→20:32)
[2017-05-16] MEDS: amLODIPine 5 MG Tab PO SCH ×2 (04:55→09:20)
[2017-05-16] MEDS ORDERED: LORazepam 0.5 MG Tab PO PRN (06:27)
[2017-05-16] MEDS: Lisinopril 10 MG Tab PO SCH (09:09)
[2017-05-16] MEDS ORDERED: LORazepam 2 MG/ML SDV IVPUSH ONE (09:58)
--- NOTE | 2017-05-16 12:18 | PCM.PN ---
- General Info Date of Service: 05/16/17 Functional Status: Reports: Pain Controlled, Tolerating Diet, New Symptoms ( Nurses notified on-call provider with some anxiety during last night with elevated blood pressure.) - Review of Systems HEENT: Reports: No Symptoms, Sinus Congestion. Denies: Headaches, Visual Changes Pulmonary: Reports: no symptoms Cardiovascular: Reports: Edema. Denies: Chest Pain, Palpitations, Dyspnea on Exertion (Left lower extremity present on admission), Orthopnea Gastrointestinal: Reports: No Symptoms Genitourinary: Reports: no symptoms Musculoskeletal: Reports: no symptoms Neurological: Denies: Confusion, Dizziness, Headache, Numbness, Syncope, Tremors , Trouble Speaking, Difficulty Walking, Weakness, Change in Speech Psychiatric: Reports: agitation - Patient Data Vitals - most recent: Last Vital Signs Temp 97.5 F 05/16/17 05:16 Pulse 85 05/16/17 05:16 Resp 18 05/16/17 05:16 BP 206/124 H 05/16/17 09:20 Pulse Ox 98 05/16/17 05:16 Weight - most recent: 118 lb 6.4 oz I&O - last 24 hours: Intake & Output 05/15/17 05/16/17 05/16/17 22:59 06:59 14:59 Intake Total 750 200 Output Total 500 725 Balance 250 -525 Lab Results last 24 hrs: Laboratory Results - last 24 hr 05/16/17 05/16/17 Range/Units 07:25 07:25 WBC 3.9 L (5.0-10.0) 10^3/uL RBC 4.14 (3.80-5.50) 10^6/uL Hgb 12.1 (12.0-16.0) g/dL Hct 35.7 L (37.0-47.0) % MCV 86.2 (82.0-92.0) fL MCH 29.2 (27.0-31.0) pg MCHC 33.9 (32.0-36.0) g/dL RDW 15.7 H (11.5-14.5) % Plt Count 340 H (150-300) 10^3/uL MPV 6.8 L (7.4-10.4) fL Neut % (Auto) 53.6 (50.0-70.0) % Lymph % (Auto) 29.3 (20.0-40.0) % [place] % (Auto) 12.7 H (2.0-8.0) % Eos % (Auto) 3.1 H (1.0-3.0) % Baso % (Auto) 1.3 H (0.0-1.0) % Neut # (Auto) 2.1 L (2.5-7.0) 10^3/uL Lymph # (Auto) 1.1 (1.0-4.0) 10^3/uL [place] # (Auto) 0.5 (0.1-0.8) 10^3/uL Eos # (Auto) 0.1 (0.1-0.3) 10^3/uL Baso # (Auto) 0.1 (0.0-0.1) 10^3/uL Sodium 138 (136-145) mmol/L Potassium 3.8 (3.3-5.3) mmol/L Chloride 100 (98-115) mmol/L Carbon Dioxide 29.1 (21.0-32.0) mmol/L BUN 12 (6-25) mg/dL Creatinine 0.92 (0.51-1.17) mg/dL Est Cr Clr Drug Dosing 41.14 mL/min Estimated GFR (MDRD) 59 mL/min Glucose 98 (70-110) mg/dL Calcium 9.7 (8.7-10.3) mg/dL John Results last 24 hrs: Microbiology 05/13/17 20:50 Urine Culture - Final Urine, Voided NO GROWTH AFTER 2 DAYS 05/14/17 06:27 Gram Stain - Final Sputum - Expectorated Med Orders - Current: Current Medications Acetaminophen (Tylenol Extra Strength) 500 mg PO Q4H PRN PRN Reason: Pain Last Admin: 05/15/17 19:40 Dose: 500 mg Amlodipine Besylate (Norvasc) 10 mg PO DAILY MAMI Last Admin: 05/16/17 09:20 Dose: Not Given Guaifenesin/Codeine Phosphate (Robitussin Ac) 10 ml PO Q6H PRN PRN Reason: Cough Last Admin: 05/15/17 06:47 Dose: 10 ml Levofloxacin/Dextrose (Levaquin In D5w 500 Mg/100 Ml) 100 mls @ 100 mls/hr IV Q48H MAMI Last Admin: 05/15/17 15:43 Dose: 100 mls/hr Levofloxacin/Dextrose (Levaquin In D5w 250 Mg/50 Ml) 50 mls @ 50 mls/hr IV Q48H [facility] Last Admin: 05/15/17 14:39 Dose: 50 mls/hr Lisinopril (Prinivil) 10 mg PO DAILY [facility] Last Admin: 05/16/17 09:09 Dose: 10 mg Lorazepam (Ativan) 0.5 mg PO BEDTIME PRN PRN Reason: Anxiety Last Admin: 05/16/17 02:28 Dose: 0.5 mg Lorazepam (Ativan) 0.25 mg PO BEDTIME PRN PRN Reason: ANXIETY Ondansetron HCl (Zofran) 4 mg IVPUSH Q4H PRN PRN Reason: Nausea/Vomiting Sodium Chloride (Normal Saline) 20 ml FLUSH ASDIRECTED PRN PRN Reason: Saline Flush Last Admin: 05/15/17 14:45 Dose: 20 ml Discontinued Medications Amlodipine Besylate (Norvasc) 5 mg PO DAILY [facility] Last Admin: 05/15/17 08:17 Dose: 5 mg Amlodipine Besylate (Norvasc) 5 mg PO ONETIME ONE Stop: 05/15/17 09:01 Last Admin: 05/15/17 09:09 Dose: 5 mg Ceftriaxone Sodium (Rocephin) 1 gm IM ONETIME ONE Stop: 05/13/17 15:33 Last Admin: 05/13/17 15:58 Dose: 1 gm Ceftriaxone Sodium (Rocephin) Confirm Administered Dose 1 gm .ROUTE .STK-MED ONE Stop: 05/13/17 15:46 Last Admin: 05/13/17 16:00 Dose: Not Given Ciprofloxacin (Ciprofloxacin Hcl) 750 mg PO ONETIME ONE Stop: 05/13/17 15:55 Last Admin: 05/13/17 16:18 Dose: 750 mg Ciprofloxacin (Ciprofloxacin Hcl) Confirm Administered Dose 250 mg .ROUTE .STK- MED ONE Stop: 05/13/17 16:29 Last Admin: 05/13/17 16:39 Dose: Not Given Dexamethasone (Dexamethasone) 8 mg PO ASDIRECTED [facility] Heparin Sodium (Porcine) (Heparin Lock Flush 100 Units/Ml) 500 unit FLUSH ASDIRECTED [facility] Sodium Chloride (Normal Saline) 1,000 mls @ 62 mls/hr IV ASDIRECTED [facility] Last Admin: 05/15/17 05:22 Dose: 62 mls/hr Lidocaine HCl (Xylocaine 1%) Confirm Administered Dose 20 ml .ROUTE .STK-MED ONE Stop: 05/13/17 15:40 Last Admin: 05/13/17 16:00 Dose: Not Given Lorazepam (Ativan) 0.5 mg PO ONETIME ONE Stop: 05/13/17 16:22 Last Admin: 05/13/17 16:31 Dose: 0.5 mg Lorazepam (Ativan) 0.25 mg IVPUSH ONETIME ONE Stop: 05/16/17 09:59 Last Admin: 05/16/17 10:46 Dose: 0.25 mg Metoprolol Tartrate (Lopressor) 50 mg PO BID [facility] Last Admin: 05/13/17 15:25 Dose: 50 mg Sodium Chloride (Normal Saline) 20 ml FLUSH ASDIRECTED [facility] Last Admin: 05/13/17 15:59 Dose: 20 ml Sodium Chloride (Syrex Flush) 5 ml FLUSH Q8HR PRN PRN Reason: Keep Vein Open Last Admin: 05/15/17 16:57 Dose: 10 ml - Exam Quality Assessment: No: supplemental oxygen General: alert, oriented, no acute distress, other (appears slightly to be "in a fog" however lucid, oriented fully) EKG INTERPRETATION EKG Date: 05/16/17 Rhythm: Other (Sinus tach) P-Wave: Present QRS: Normal ST-T: Other (Appears older Q waves septal) EKG Interpretation Comments: Sinus tachycardia - Problem List Review Problem List Initiated/Reviewed/Updated: Yes - My Orders Last 24 Hours: My Active Orders 05/15/17 13:44 Sodium Chloride 0.9% [Normal Saline] 20 ml FLUSH ASDIRECTED PRN 05/15/17 15:00 Levofloxacin/Dextrose 5%-Water [Levaquin in D5W 250 MG/50 ML] 50 ml IV Q48H 05/15/17 16:00 Levofloxacin/Dextrose 5%-Water [Levaquin in D5W 500 MG/100 ML] 100 ml IV Q48H 05/16/17 05:11 CXR [Chest 2V] [CR] AM 05/16/17 09:00 amLODIPine [Norvasc] 10 mg PO DAILY 05/16/17 09:15 Lisinopril [Prinivil] 10 mg PO DAILY 05/16/17 10:58 EKG 12 Lead [EK] Routine 05/16/17 10:59 EKG Documentation Completion [RC] ASDIRECTED 05/20/17 11:00 Communication Order [RC] WEEKLY - Plan Plan:: HISTORY OF PRESENT ILLNESS This 77-year-old female who suffers from metastatic cervical cancer currently on chemotherapy is due for chemotherapy on May 14 was admitted to the emergency department after developing a fever of 100.7 at [place] with a worsening cough, scratchy with mild mucous production. She took Tylenol however fever returned. Denies any nausea or vomiting however is quite weak. On May 11 her ANC was 1300 and has increased to 2700 today. Chest x-ray shows infiltrate right upper lobe. Renetta has metastatic cervical cancer with METS in the supraclavicular area, bilateral axillary area, lung nodules, mediastinal, subcarinal lymph nodes, retroperitoneal, retrocrural lymph nodes as noted on recent CT. Current chemotherapy with cisplatin, 5FU and bevacizumab. Oncology history, patient was seen at [facility] for second opinion by gynecology in January 2017, and was informed that it appeared that she has extensive cancer in the cervix extending into the paracervical regions. As per gynecology, this is cervical cancer causing metastasis to other sites. 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 SOCIAL HISTORY She used to live alone in [place], [place]. Was placed in long-term care center in [place] since March 2017. CODE STATUS full code Update from last night, ongoing elevated blood pressure--asymptomatic, was placed on amlodipine escalating dose of amlodipine. Significantly elevated today, will try NOHEMI inhibitor and labetalol if needed. Cough much improved, chest x-ray shows improvement in infiltrate. IMPRESSION/PLAN Pneumonia, community-acquired, minimal new interstitial infiltrate in right upper lung on admission however repeat chest x-ray resolution of pneumonia. patient was given Rocephin along with ciprofloxacin in ED however due to decreased renal clearance she was changed to Levaquin every 48 hours. Incentive spirometer, monitor for need for oxygenation. Blood cultures, sputum culture, urine culture, lactic acid level, qSOFA 0/3. Kidney with saline lock. Hypertension, Stage II, asymptomatic, Norvasc to 10 mg by mouth daily--monitor for worsening edema. NOHEMI inhibitor 20 mg today. They have to give labetalol Metastatic cervical cancer with METS in the supraclavicular area, bilateral axillary area, lung nodules, mediastinal and subcarinal lymph nodes, retroperitoneal, retrocrural lymph nodes. Was to start chemotherapy tomorrow. This will be rescheduled. Chemotherapy-induced alopecia Immunocompromised host, precautions, ANC adequate Overall plan, add NOHEMI inhibitor today, possible labetalol IV if needed for increased blood pressure. Far as her pneumonia this appears to be resolved. Anticipate discharged tomorrow if blood pressure stable. On follow-up reschedule chemotherapy. On follow-up ensure blood culture surveillance for full 5 days
[2017-05-16] MEDS ORDERED: Lisinopril 10 MG Tab PO ONE (18:49)
[2017-05-17] MEDS: Lisinopril 10 MG Tab PO SCH (08:12)
[2017-05-17] MEDS: amLODIPine 5 MG Tab PO SCH (08:12)
[2017-05-17] MEDS: Sodium Chloride 0.9% 20 ML SDV FLUSH PRN (08:12)
[2017-05-17] MEDS ORDERED: Lisinopril 10 MG Tab PO SCH (09:15)
[2017-05-17 10:19] VITALS: BP 178/85
--- NOTE | 2017-05-18 08:06 | DISCH ---
ADMITTING DIAGNOSIS: Right upper lobe pneumonia with history of metastatic cervical cancer. FINAL DIAGNOSIS: Pneumonia resolved and metastatic cervical cancer. BRIEF HISTORY AND ESSENTIAL FINDINGS: This is a 77-year-old female patient, who has been dealing with metastatic cervical cancer. The patient will be going under chemotherapy treatment. She had been seen at [facility]. She was at the [facility] in [place], she developed a fever, then was brought to the emergency room for further evaluation. At that time, the patient was admitted after chest x-ray showed right upper lobe pneumonia infiltrate. SIGNIFICANT LABS, CHEST X-RAYS, AND CONSULTATION FINDINGS: The patient's chest x-ray on admission did show a right upper lobe pneumonia. A repeat x-ray did show resolution of infiltrate. The patient's lab work on 05/13/2017, which is the day of admission, the patient's CBC showed a white count at 4.6, hemoglobin at 10.7. Chemistry panel is unremarkable. Lactic acid on admission was 0.6. Repeat lab work on 05/16/2017, day prior to discharge CBC showed a white count at 3.9, hemoglobin 12.1. Chemistry panel showed sodium within normal range at 138, potassium 3.8, chloride 100, BUN 12, creatinine 0.92, GFR was 59, glucose 98. Troponin was 0.07, calcium was 9.7. COURSE IN HOSPITAL WITH COMPLICATIONS IF ANY: The patient's pneumonia was treated with IV antibiotic therapy. She did improve and there was resolution of infiltrate on her chest x-ray. The patient's blood pressure was elevated at times throughout the hospital stay. Her medication was slowly increased. She is currently discharged on 10 mg of amlodipine along with 20 mg of lisinopril daily. CONDITION TREATMENT AND FINAL DISPOSITION ON DISCHARGE AND PROGNOSIS: Condition is stable. Final disposition will be [facility] in [place], [place]. IMPRESSION AND PLAN: 1. Right upper lobe pneumonia, which is resolved. Repeat chest x-ray showed resolution of infiltrate. The patient's blood cultures were negative. The patient's sputum culture showed normal juana. We will send the patient back to the [facility] on Levaquin 250 mg for five more days. 2. Hypertension. Plan: The patient's blood pressure was elevated at times. We will send her back to [facility] on amlodipine 10 mg daily along with lisinopril 20 mg daily. We will have daily blood pressure checks with call parameters. 3. Metastatic cervical cancer with metastases to multiple areas. Plan: The patient's chemotherapy will have to be rescheduled. The patient's CBC yesterday, a day before discharge showed a WBC count of 3.9, hemoglobin at 12.1. The patient's basic metabolic panel is unremarkable. The patient has multiple PRN meds she can use for symptom relief. 4. Anxiety. Plan: Continue with Ativan 0.5 mg p.o. as needed at bedtime for anxiety. /[id number]/MODL MTDD
[2017-05-18] MEDS ORDERED: Lisinopril 20 MG Tab PO SCH (09:00)
== END 2017-05-17 11:00 | DRG 194 ==
LOC: KA.ED 14:15 → KA.MS 17:15 → UNDOADMIN 17:15 → KA.MS 17:55 → UNDODISIN 05-17 11:00
PROVIDERS: ADMIT Physician Assistant Surgical; ATTEND Nurse Practitioner Family
DX: J18.1 Lobar pneumonia, unspecified organism (principal); C77.8 Secondary and unspecified malignant neoplasm of lymph nodes of multiple regions; C78.00 Secondary malignant neoplasm of unspecified lung; I10 Essential (primary) hypertension; C53.9 Malignant neoplasm of cervix uteri, unspecified; F03.90 Unspecified dementia, unspecified severity, without behavioral disturbance, psychotic disturbance, mood disturbance, and anxiety; Z79.899 Other long term (current) drug therapy; F41.9 Anxiety disorder, unspecified
CPT/HCPCS: 71020; 80048; 83605; 85025; 87040 ×2; 96372; 99285; A9270 ×3; J0696; 36415; 84484; 87070; 87086; 87205; 93005; 99284; J1956; J2060; J7030